=== PATIENT | female | born 1965 | race Caucasian/White ===

== ENCOUNTER → 2017-12-24 | Outpatient (CLI) | payer OTHER ==
[~2017-12-24] VITALS: Ht 162.6 cm; Wt 98.0 kg
[~2017-12-24] MED LIST: ARNUITY ELLIPT50 MCG IH; CENTRUM COMPLE1 EACH PO; CITRACAL + D E1 EACH PO; CITRACAL D + H1 EACH PO; SUPER B-50 COM1 EACH PO; VITAMIN C1000 MG PO; ZYRTEC10 M2 PO
== END | disposition home or self-care (01) ==
LOC: AMB 07:33
PROC: 0DBP8ZX Excision of Rectum, Via Natural or Artificial Opening Endoscopic, Diagnostic (ICD-10-PCS; principal; 2017-12-24)
DX: Z12.11 Encounter for screening for malignant neoplasm of colon (principal); K62.1 Rectal polyp; K57.30 Diverticulosis of large intestine without perforation or abscess without bleeding; K64.8 Other hemorrhoids
CPT/HCPCS: 88305